=== PATIENT | male | born 1990 | race Caucasian/White ===

== ENCOUNTER 2019-10-01 14:34 | Emergency (ER) | payer OTHER ==
[2019-10-01] MEDS ORDERED: Iopamidol-370 76% 500 ML 1 ML ONE (15:28)
[2019-10-01 15:42] LABS: #Basophils 0.1 thou/uL (0.0-0.2); #Eosinphils 0.2 thou/uL (0.0-0.7); #Lymphocytes 2.7 thou/uL (1.20-3.40); #Monocytes 0.5 thou/uL (0.11-0.59); #Neutrophils 3.6 thou/uL (1.40-6.50); %Eosinophils 2.5 % (0.0-10.0); %Lymphocytes 37.7 % (21.0-51.0); %Monocytes 7.4 % (0.0-10.0); %Neutrophils 51.4 % (42.0-75.0); Hemoglobin 15.9 g/dL (14.0-18.0); Mean Corpuscular HGB CONC 34.6 g/dL (32.0-36.0); Mean Corpuscular Hemoglobin 30.5 pg (27.0-31.0); Mean Corpuscular Volume 88.1 fL (78.0-98.0); Mean Platelet Volume 7.9 fL (7.4-10.4); Platelet Count 219 thou/uL (130-400); RBC Distribution Width 11.1 % (11.5-14.5); Red Blood Cell (RBC) Count 5.22 mill/uL (4.70-6.10)
[2019-10-01 16:07] LABS: ALT (SGPT) 12 U/L (8-55); AST (SGOT) 12 U/L (5-34); Albumin 5.2 g/dL (3.5-5.0); Alkaline Phosphatase 85 U/L (40-110); Anion Gap 13 mmol/L (10-20); BUN (Urea Nitrogen) 8 mg/dL (8.9-20.6); Bilirubin, Total 1.2 mg/dL (0.2-1.2); Calc. Creatinine Clearance 0 mL/min (70-130); Calcium 10.1 mg/dL (7.8-10.44); Carbon Dioxide 27 mmol/L (22-29); Chloride 106 mmol/L (98-107); Estimated GFR-MDRD Greater than 90; Globulin 2.9 g/dL (2.4-3.5); Glucose 85 mg/dL (70-105); Potassium 3.5 mmol/L (3.5-5.1); Protein, Total 8.1 g/dL (6.0-8.3); Sodium 142 mmol/L (136-145)
[2019-10-01 16:59] LABS: Prothrombin Time 13.4 SEC (12.0-14.7)
[2019-10-01 17:06] LABS: BHCG - Serum Negative; Pregs Control Background? CLEAR/WHITE (CLR/WHITE); Pregs Control Bar Appear? YES (CONTROL BAR)
[2019-10-01] MEDS ORDERED: Ondansetron PF 4 MG/2 ML Vial ONE (17:54)
[2019-10-01] MEDS ORDERED: Pantoprazole 40 MG VIAL ONE (17:54)
--- NOTE | 2019-10-01 18:30 | CT ---
CT abdomen and pelvis with IV contrast HISTORY: Abdominal pain. Hematemesis. Infectious colitis. FINDINGS: Lung bases are clear. Tiny cysts of the kidneys and liver. There is a 0.3 cm calculus withi n a nondilated calyx at the lateral portion left kidney. At least 10 small calcifications throughout the calyces of the right kidney, measuring up to 0.5 cm the inferior pole. Urinary system is decompressed. No enlarged lymph nodes or free fluid. Nonspecific, reactive appearing lymph nodes are apparent within the retroperitoneum. Scattered diverticula of the colon. There is subtle circumferential wall thickening of the right colo n and hepatic flexure with minimal stranding in the adjacent fat. Appendix not well delineated. No free air or free fluid. IMPRESSION: Mild long segment inflammation of the right colon without focal abnormality. Likely relat ed to the historically stated infectious colitis. Mild diverticulosis. No focal diverticulitis is evident. Small nonobstructing bilateral renal calculi.
== END 2019-10-01 21:00 | disposition home or self-care (01) ==
LOC: ERS 14:34
DX: K92.0 Hematemesis (principal); J45.909 Unspecified asthma, uncomplicated; F32.9 Major depressive disorder, single episode, unspecified; F17.290 Nicotine dependence, other tobacco product, uncomplicated; Z79.899 Other long term (current) drug therapy
CPT/HCPCS: 36415; 74177; 80053; 83690; 84703; 85025; 85610; 86850; 86900; 86901; 96361; 96374; 96375; C9113; J2405; Q9967